=== PATIENT | female | born 1990 | race Hispanic/Latino ===

== ENCOUNTER → 2022-04-16 | Outpatient (CLI) | payer OTHER | END | disposition home or self-care (01) | LOC: ICE 11:46 | PROVIDERS: ATTEND Hospitalist | DX: Z20.822 Contact with and (suspected) exposure to COVID-19 (principal) | CPT/HCPCS: 87426 ==

== ENCOUNTER → 2022-12-09 | Outpatient (CLI) | payer OTHER ==
[2022-12-09 08:56] LABS: BASOPHILS % (AUTO) 0.6 % (0.0-5.0); EOSINOPHILS % (AUTO) 5.5 % (0.0-8.0); HEMATOCRIT 40.2 % (36-48); MEAN CORPUSCULAR HEMOGLOBIN 25.9 pg (27.0-33.0); MEAN CORPUSCULAR HGB CONC 31.6 g/dL (32.0-36.0); MEAN CORPUSCULAR VOLUME 81.9 fL (79-99); MONOCYTES % (AUTO) 6.8 % (3.0-13.0); NEUTROPHILS % (AUTO) 55.6 % (40.0-77.0); PLATELET COUNT (AUTO) 380 K/uL (130-400); RED BLOOD CELL COUNT(AUTO) 4.91 MIL/uL (4.00-5.50); RED CELL DISTRIBUTION WIDTH 14.1 % (11.0-15.5); WHITE BLOOD COUNT (AUTO) 10.1 K/uL (4.8-10.8)
[2022-12-09 08:59] LABS: HEMOGLOBIN A1C 5.8 % (4.0-6.0)
[2022-12-09 09:09] LABS: CREATININE 0.7 mg/dL (0.5-1.5); POTASSIUM 3.5 mmol/L (3.5-5.1); THYROID STIMULATING HORMONE 4.27 uIU/mL (0.36-3.74); TOTAL PROTEIN, SERUM 7.9 g/dL (6.0-8.3)
== END | disposition home or self-care (01) ==
LOC: LAB 08:16
PROVIDERS: ATTEND Nurse Practitioner Adult Health
DX: Z00.00 Encounter for general adult medical examination without abnormal findings (principal); E11.65 Type 2 diabetes mellitus with hyperglycemia; E55.9 Vitamin D deficiency, unspecified; R53.83 Other fatigue
CPT/HCPCS: 36415; 80053; 80061; 82306; 83036; 84443; 85025

== ENCOUNTER → 2023-04-15 | Outpatient (CLI) | payer OTHER | END | disposition home or self-care (01) | LOC: LAB 12:33 | PROVIDERS: ATTEND Hospitalist | DX: U07.1 COVID-19 (principal) | CPT/HCPCS: 87426 ==

== ENCOUNTER → 2025-01-10 | Outpatient (CLI) | payer OTHER ==
--- NOTE | 2025-01-11 07:25 | HMCIMG ---
EXAMINATION: ULTRASOUND OF THE ABDOMEN WITH COLOR DOPPLER. CLINICAL HISTORY: Abnormal LFT. COMPARISON: None. TECHNIQUE: Real-time grayscale ultrasound images of the abdomen. In addition, color Doppler is medically necessary to perform in order to evaluate vascularity and blood flow. FINDINGS: Liver: Normal in caliber, the right hepatic lobe measures 13.7 cm in the craniocaudal dimension. There is increased echogenicity of the hepatic parenchyma. There is no focal hepatic abnormality or intrahepatic biliary ductal dilatation. There is normal spectral Doppler of the main portal vein. Gallbladder: Within normal limits with normal wall thickness (0.29 cm). No hyperemia or pericholecystic free fluid. There is a calculus that measures 2.4 cm. There is sludge. Common bile duct is normal in caliber, measuring 0.49 cm. Spleen is normal in caliber and measures 9.6 x 3.2 x 3.9 cm in craniocaudal, AP and transverse dimensions respectively. No focal lesions. Pancreas: Normal in caliber and echotexture. No calcification or dilated pancreatic duct. The kidneys are normal in caliber, the right kidney measures 9.4 x 4.4 x 4.7 cm and the left kidney measures 11.5 x 5.8 x 4.4 cm in craniocaudal, AP, and transverse dimensions respectively. There is normal renal cortical thickness, and cortical echogenicity. There is no right renal calculus or hydronephrosis bilaterally. There is a calculus that measures 0.3 x 0.5 cm in the left renal mid pole. IMPRESSION: Hepatic steatosis. Cholelithiasis. No cholecystitis. Gallbladder sludge. Left renal calculus. No obstruction. /[place]ran
== END | disposition home or self-care (01) ==
LOC: RAH 07:57
PROVIDERS: ATTEND Nurse Practitioner Adult Health
DX: K76.0 Fatty (change of) liver, not elsewhere classified (principal); K80.20 Calculus of gallbladder without cholecystitis without obstruction; N20.0 Calculus of kidney; R94.5 Abnormal results of liver function studies
CPT/HCPCS: 76700